=== PATIENT | female | born 1970 | race Caucasian/White ===

== ENCOUNTER 2020-09-22 14:58 | Outpatient (REF) | payer OTHER, SELFPAY | END 2020-09-22 14:59 | disposition home or self-care (01) | LOC: HO.LAB 14:58 | PROVIDERS: Visit Provider Internal Medicine | DX: Z20.822 Contact with and (suspected) exposure to COVID-19 (principal) | CPT/HCPCS: 36415; C9803; U0003; U0005 ==

== ENCOUNTER 2021-03-19 10:37 | Outpatient (REF) | payer OTHER, SELFPAY ==
[2021-03-19 11:24] LABS: COVID-19 Test Negative (Negative)
== END 2021-03-19 10:38 | disposition home or self-care (01) ==
LOC: HO.LAB 10:37
PROVIDERS: PCP Internal Medicine; Visit Provider Internal Medicine
DX: Z20.822 Contact with and (suspected) exposure to COVID-19 (principal)
CPT/HCPCS: 36415; 87635; C9803

== ENCOUNTER 2021-07-08 08:18 | Outpatient (REF) | payer OTHER, SELFPAY ==
[2021-07-08 09:28] LABS: COVID-19 Test Negative (Negative)
== END 2021-07-08 08:19 | disposition home or self-care (01) ==
LOC: HO.LAB 08:18
PROVIDERS: Visit Provider Internal Medicine
DX: Z20.822 Contact with and (suspected) exposure to COVID-19 (principal)
CPT/HCPCS: 87635; C9803

== ENCOUNTER 2021-08-31 08:36 | Day surgery (SDC) | payer OTHER, SELFPAY ==
[2021-08-21 18:07] VITALS: BMI 34.5
--- NOTE | 2021-08-28 10:32 | HO.ANESPROP2 ---
Documented by User: Susan Armenta NP 08/28/21 10:32 HPI - Anesthesia Eval Consult details Narrative: 51yo F for Colonoscopy [facility] Past Medical History Medical History Anxiety Depression Surgical History Surgical History History of wisdom tooth extraction Social History Social History Patient Tobacco Use Status: Never used Tobacco Use of substances other than those prescribed or required for medical reasons: No Are you DNR?: No Advance Directives: No Advance Directives Information Provided: Yes Advance Directives on File: No Recently lost weight without trying: No Nutrition Risks: No Nutritional Risk Patient : No Meds Allergies Allergy/AdvReac Type Severity Reaction Status Date / Time No Known Allergies Allergy Verified 08/21/21 17:58 Home Medications Medication Instructions Recorded Confirmed Last Taken Type bupropion HCl 200 mg tablet,12 hr 1 tab PO QAM 08/21/21 08/21/21 Unknown History sustained-release duloxetine 20 mg capsule,delayed 2 cap PO QPM 08/21/21 08/21/21 Unknown History release trazodone 50 mg tablet 1 tab PO BEDTIME 08/21/21 08/21/21 Unknown History Exam Exam Date and Time: August 28, 2021 1032 Height,Weight and Vital Signs: Height 5 ft 3 in Weight 88.451 kg Assessment and Plan Assessment Anesthesia Assessment: Chart Reviewed Documented by User: Mahogany Nuñez MD 08/31/21 09:57 [facility] Past Medical History Medical History Anxiety Depression Functional capacity: independent ambulation Patient : No Family History Family history of problems with anesthesia: No Surgical History Surgical History History of wisdom tooth extraction History of Problems with Anesthesia: No Social History Social History Patient Tobacco Use Status: Never used Tobacco Use of substances other than those prescribed or required for medical reasons: No Are you DNR?: No Advance Directives: No Advance Directives Information Provided: Yes Advance Directives on File: No Recently lost weight without trying: No Nutrition Risks: No Nutritional Risk Patient : No Meds Allergies Allergy/AdvReac Type Severity Reaction Status Date / Time No Known Allergies Allergy Verified 08/21/21 17:58 Home Medications Medication Instructions Recorded Confirmed Last Taken Type bupropion HCl 200 mg tablet,12 hr 1 tab PO QAM 08/21/21 08/21/21 Unknown History sustained-release duloxetine 20 mg capsule,delayed 2 cap PO QPM 08/21/21 08/21/21 Unknown History release trazodone 50 mg tablet 1 tab PO BEDTIME 08/21/21 08/21/21 Unknown History Exam Airway Mallampati Class: III TM Dist: >3cm Neck ROM: Full Heart: RRR Lungs: CTA Assessment and Plan Final Anesthetic Review Family History of Problems with Anesthesia: No History of Problems with Anesthesia: No ASA Class: II Final Preanesthetic Review: No Changes in Pt Med Stat, Meds/Allgs Chart Reviewed, Consent Obtained/Reviewed and Anes Risks/Benef Reviewed Patient Risk: Low Procedure Risk: Low Anesthetic Plan Anesthetic Plan: MAC: Disposition: Standard PACU
[2021-08-31 08:56] VITALS: BMI 32.9
[2021-08-31 09:08] VITALS: BP 118/62; PULSE 64; RESP 16; TEMP 36.2; O2SAT 96
[2021-08-31] MEDS: Lactated Ringers 1,000 ML 100 ML IVCONT (09:09)
[2021-08-31 10:32] VITALS: BP 97/73; PULSE 68; RESP 16; TEMP 36.1; O2SAT 96
--- NOTE | 2021-08-31 10:34 | PM.OP ---
Brief Operative Note Date of Service: 08/31/21 Pre-op diagnosis: Screening Post-op diagnosis: other (Diverticulosis) Procedure: Colonoscopy to the cecum Surgeon: Angel Chandra Anesthesia: MAC Was an Supply Chain Design Manager used for this Procedure?: No Estimated blood loss (mL): 0 Pathology: none sent Condition: stable Disposition: PACU
[2021-08-31 10:45] VITALS: BP 113/72; PULSE 56; RESP 18; TEMP 36.1; O2SAT 98
--- NOTE | 2021-08-31 14:38 | HO.POSTANES ---
Post Anesthesia Evaluation Post Anesthesia Evaluation Vital Signs: Vital Signs Temp Pulse Resp BP Pulse Ox 08/31/21 10:45 97.0 F 56 18 113/72 98 08/31/21 10:32 96.9 F 68 16 97/73 96 08/31/21 09:08 97.2 F 64 16 118/62 96 Anesthesia: Monitored Mental Status: Awake Pain Control: Satisfactory Nausea/Vomiting: None Hydration: Adequate Anesthesia-Related Issues: No Anes. Related Issues
--- NOTE | 2021-08-31 21:19 | OP_ITS ---
SURGEON: Angel Chandra MD INDICATIONS: The patient presents for evaluation of colorectal cancer screening. Full consent has been obtained from her for this, including risks of bleeding and perforation. PREOPERATIVE DIAGNOSIS: Colorectal cancer screening. POSTOPERATIVE DIAGNOSIS: PROCEDURE PERFORMED: Colonoscopy to the cecum. ESTIMATED BLOOD LOSS: COMPLICATIONS: ANESTHESIA: Medication used, monitored anesthesia care. ASSISTANTS: SPECIMENS: POSTOPERATIVE DIAGNOSES: Colorectal cancer screening, diverticulosis, and internal hemorrhoids. DESCRIPTION OF PROCEDURE: The patient was placed in left lateral decubitus position. The digital rectal exam revealed no abnormalities. The Olympus video pediatric colonoscope was entered into the rectum advanced to the cecum with the assistance of abdominal wall pressure. Once in the cecum, I did identify normal-appearing cecal pouch with appendiceal orifice and a normal-appearing ileocecal valve. There was transillumination of light deep in the right lower quadrant, the entire cecum and ileocecal valve appeared normal. The scope was slowly withdrawn assessing all mucosal surfaces carefully. Preparation was excellent. I did not visualize any sign of polyps, colitis, nor angiodysplasia. There was a mild amount of sigmoid diverticulosis. In the rectum, the scope was retroflexed visualizing internal hemorrhoids, but no other pathology. The rectal mucosa appeared normal. Scope was straightened and withdrawn from the patient. She tolerated the procedure well and was returned to recovery area in stable condition. IMPRESSION: 1. Mild sigmoid diverticulosis. 2. Small internal hemorrhoids. PLAN: Given the negative exam and negative family history, I would recommend a followup colonoscopy in 10 years for screening. She will otherwise see me on a p.r.n. basis. MD DAVIS Gasca/SAUD / [phone]
== END 2021-08-31 11:33 | disposition home or self-care (01) ==
PROVIDERS: PCP Internal Medicine; Visit Provider Internal Medicine
PROC: 0DJD8ZZ Inspection of Lower Intestinal Tract, Via Natural or Artificial Opening Endoscopic (ICD-10-PCS; CPT 45378; principal; 2021-08-31 10:10)
DX: Z12.11 Encounter for screening for malignant neoplasm of colon (principal); K57.30 Diverticulosis of large intestine without perforation or abscess without bleeding; K64.8 Other hemorrhoids; F32.9 Major depressive disorder, single episode, unspecified; F41.1 Generalized anxiety disorder; Z79.899 Other long term (current) drug therapy
CPT/HCPCS: 45378

== ENCOUNTER 2022-06-05 03:12 | Emergency (ER) | payer OTHER, SELFPAY ==
--- NOTE | ~2022-06-05 | CT_ITS ---
EXAMINATION: CT ABDOMEN AND PELVIS WITH CONTRAST CLINICAL INFORMATION: Right abdominal and flank pain COMPARISON: None TECHNIQUE: Multidetector volumetric images were obtained from the superior aspect of the liver through the pubic symphysis following administration 85 mL of Omnipaque 350 intravenous contrast. Sagittal and coronal reformatted images were obtained on the technologist's workstation. Oral contrast: No This CT examination was performed using dose optimization techniques as appropriate, variously including the following: *Automated exposure control *Adjustment of mA and/or kV according to patient size (this includes techniques or standardized protocols for targeted exams where dose is matched to indication/reason for exam; i.e. extremities or head) *Use of iterative reconstruction technique DLP: 796 mGy-cm FINDINGS: LUNG BASES: The visualized lung bases are unremarkable. No pleural or pericardial effusion. LIVER, GALLBLADDER, AND BILIARY TREE: The liver is normal in size, shape, and attenuation. No focal hepatic lesion or biliary ductal dilatation is present. The gallbladder is unremarkable with no evidence of radiopaque gallstones, gallbladder wall thickening, or obvious pericholecystic inflammatory changes. PANCREAS: Unremarkable. SPLEEN: Unremarkable. ADRENAL GLANDS: Unremarkable. KIDNEYS AND URETERS: Right kidney: Within the interpolar region there is a 3 mm nonobstructing calculus lying approximately 8 cm from the posterior axillary line. There is also a 2 mm nonobstructing calculus in the interpolar region. There is mild fullness to the right upper collecting system with columnization of the right ureter down to the urinary bladder but without definite ureteral calculus appreciated. There is question of a 1 mm calculus within the posterior right urinary bladder which may represent a recently passed calculus. There is some mild right perinephric fat stranding. No renal mass appreciated. Left kidney: No hydronephrosis or renal mass. There is either a 4 mm nonobstructing calculus versus contrast within the anterior interpolar region. The left ureter appears unremarkable. No significant perinephric fat stranding. BLADDER: Distended with question 1 mm calculus adjacent to the right ureterovesical junction. GASTROINTESTINAL TRACT: No dilated loops of large or small bowel. No free air or free fluid is seen. There is mild sigmoid diverticulosis without evidence of acute diverticulitis. No pericolonic inflammatory change. Appendix appears unremarkable. ABDOMINAL WALL: No significant hernia is appreciated. LYMPH NODES: No lymphadenopathy identified. VASCULAR: Unremarkable. PELVIC VISCERA: No suspicious mass identified. 1.7 cm Low-density region within the vagina/cervix. This may represent a nabothian cyst. OSSEOUS STRUCTURES: No destructive bony lesion identified. CT/CT abdomen pelvis w IV con IMPRESSION: Mild right hydronephrosis with columnization of the right ureter to the ureterovesical junction with question 1 mm calcification dependent right urinary bladder which may represent a recently passed calculus. A nonradiopaque calculus at the ureterovesical junction cannot be excluded. Right nephrolithiasis. Fleischner guidelines were followed.
[2022-06-05 03:17] VITALS: BP 129/65; PULSE 62; RESP 18; TEMP 36.6; O2SAT 99; BMI 31.8
[2022-06-05 03:32] LABS: MANUAL DIFF FLAG NO
[2022-06-05 03:33] LABS: Basophils Absolute Auto 0.1 X10*3/uL (0.0-0.2); Basophils Percent Auto 0.4 % (0-2); Eosinophils Absolute Auto 0.2 X10*3/uL (0.0-0.4); Eosinophils Percent Auto 1.3 % (0-4); Hematocrit 36.7 % (37.0-47.0); Hemoglobin 12.9 g/dl (12.0-16.0); Imm Gran Abs Auto 0.07 X10*3/uL (0.00-0.03); Imm Gran Pct Auto 0.6 % (0.0-0.4); Lymphocytes Absolute Auto 2.1 X10*3/uL (1.2-4.9); Lymphocytes Percent Auto 18.6 % (20-40); Mean Corpuscular HGB Conc 35.1 g/dl (31.0-35.0); Mean Corpuscular Hemoglobin 31.3 pg (27.0-33.0); Mean Corpuscular Volume 89.1 fL (80.0-98.0); Mean Platelet Volume 8.8 fL (9.4-12.3); Monocytes Absolute Auto 0.8 X10*3/uL (0.1-1.2); Monocytes Percent Auto 6.8 % (2-11); Neutrophils Absolute Auto 8.1 x10*3/uL (2.0-8.3); Neutrophils Percent Auto 72.3 % (45-73); Platelet Count 228 X10*3/uL (160-400); Red Blood Count 4.12 X10*6/uL (4.20-5.50); White Blood Count 11.3 X10*3/uL (4.8-10.8)
[2022-06-05 04:03] LABS: Alanine Aminotransferase 25 U/L (0-31); Albumin Level 4.5 g/dL (3.5-5.0); Alkaline Phosphatase 88 U/L (39-117); Anion Gap 13 (12-20); Aspartate Amino Transferase 23 U/L (5-31); Bilirubin Total 0.2 mg/dL (0.0-1.0); Blood Urea Nitrogen 25 mg/dL (9-16); Calcium 9.6 mg/dL (8.4-10.2); Carbon Dioxide 26 mmol/L (22-29); Chloride 100 mmol/L (96-108); Creatinine Clr Calc Pharmacy 71.5; Estimated Glomerular Filt Rate > 60; Glucose Random 123 mg/dL (60-115); Lipase 19 U/L (8-78); Potassium 4.2 mmol/L (3.3-5.1); Sodium 135 mmol/L (135-145); Total Protein 7.1 g/dL (6.5-8.0)
[2022-06-05 04:35] LABS: Appearance Urine Clear; Color Urine Yellow; Glucose Urine UA Negative (Negative); Leukocyte Esterase Urine Small (1+) (Negative); Nitrite Urine Negative (Negative); PH 6.5 (5.0-9.0); Specific Gravity - Urine >= 1.030 (1.005-1.025); UMIC TRIGGER UACC YES; Urine Blood Small (1+) (Negative); Urine Ketones 40 mg/dL (Negative); Urine Protein 30 (1+) mg/dL (Neg-Trace)
[2022-06-05 04:37] LABS: Bacteria Urine 1+ (None Seen); Hyaline Casts Urine 0-2 /LPF (0-2); UACC Culture Trigger YES
--- OUTSIDE RECORDS SUMMARY | 2022-06-05 04:42 | XMS_ITS ---
:1970 Author Organization [facility] Address [address] [place] [id number] Care Team Providers Name Role Phone Angel Chandra Unavailable Unavailable PROBLEMS Type Condition ICD9-CM [id number] Onset Condition SNOMED Cod e Code Code Dates Status Problem Encounter for Z12.11 Active 145710 004 screening for malignant neoplasm of colon Problem Diverticulosis of K57.30 Active 73 9124904 colon Problem Preprocedural Z01.818 Active 947913 [id number] examination ALLERGIES No Known Allergies ENCOUNTERS Encounter [place] Date [place] [facility] [place] [facility] [place], Colon cancer [facility] [place] [id number] Z12.11 ; D iverticulosis of colon K57.30 and Internal hemorrhoids K64. [address] Jul, Encounte r for screening for [facility] [address] [place], [place] malignant neoplasm of colon [id number] Z12.11 and Prepr ocedural examination Z01. 818 IMMUNIZATIONS Vaccine Route Administration Date Status Influenza Unknown Mar 04, 2021 Administered SOCIAL HISTORY Qualifiers Date Never Smoker REASON FOR REFERRAL FUNCTIONAL STATUS PLAN OF CARE Activity Details Future/Pending Procedure COLONOSCOPY [id number] VITAL SIGNS Weight 194 lbs 2021-07-28 Height 63 in 2021-07-28 BMI 34.36 kg/m2 2021-07-28 Temperature 96.8 degrees Fahrenheit 2021-07-28 Blood pressure systolic 000 mm Hg 2021-07-28 Blood pressure diastolic 00 mm Hg 2021-07-28 MEDICATIONS Medication Instructions Dosage Frequency Start End Date Duration Stat us Date traZODone HCl 90 Active 50 MG DULoxetine HCl Oral 20 in am 40 1 capsule Active 20 MG in pm buPROPion HCl 90 Active ER (SR) 200 MG PROCEDURES Procedure Date Ordered Result Body Site BP SCR NOT PRFRM REC REASON NOS Jul 28, 2021 TOBACCO NON-USER Jul 28, 2021 DOC MEDS VERIFIED W/PT OR RE Jul 28, 2021 COLORECTAL CA SCREEN DOC REV Jul 28, 2021 DIAGNOSTIC COLONOSCOPY Aug 31, 2021 RESULTS No Results REASON FOR VISIT screening, Patient presents today for screening colonoscopy Insurance Providers [facility] Member Patient Patient Patient Patient Patient Subscriber Subscriber Subscriber Group Insurance Plan Plan Plan Plan ID Relationship Address Phone Name Date of ID Name Date of No Type Insurance Insurance Insurance Coverage to Subscriber Address Phone Name Dates [facility] [phone] [facility] [place]GEL[place] 1969 [address][birth year] [id number] [place] [address] [facility] [address] [place] [phone]
--- NOTE | 2022-06-05 06:14 | PC.NURSE ---
Pt stating pain has stopped completely all of a sudden
[2022-06-05 06:15] VITALS: BP 124/68; PULSE 65; RESP 18; O2SAT 98
--- NOTE | 2022-06-05 07:31 | ED.ABDPAIN ---
HPI - Abdominal Pain General Chief Complaint: Abdominal Pain Stated Complaint: Abd pain Time Seen by Provider: 06/05/22 06:56 Source: patient Mode of arrival: ambulatory Limitations: no limitations History of Present Illness HPI narrative: 52-year-old female with a past medical history of anxiety presents to the emergency room this morning with sudden onset of abdominal pain. Patient states pain started at 1:00 a.m., and was severe. Located on the right side of her abdomen, mostly lower quadrant, without radiation. Patient denies nausea, fevers or chills at that time. MD elicited complaint: abdominal pain Pertinent past history: none Onset (ago): hour(s) Pain Consistency: constant and now resolved Location: RLQ Severity: severe Quality: stabbing and sharp Migration to: no migration Exacerbating factors: nothing Relieving factors: nothing Related Data Home Medications Medication Instructions Recorded Confirmed bupropion HCl 200 mg tablet,12 hr 1 tab PO QAM 08/21/21 08/21/21 sustained-release duloxetine 20 mg capsule,delayed 2 cap PO QPM 08/21/21 08/21/21 release trazodone 50 mg tablet 1 tab PO BEDTIME 08/21/21 08/21/21 Allergies Allergy/AdvReac Type Severity Reaction Status Date / Time No Known Allergies Allergy Verified 06/05/22 03:22 Review of Systems Constitutional: Denies chills, Denies fever(s) and Denies weakness Eyes: Denies blurry vision and Denies diplopia Denies vertigo, Denies dizziness, Denies neck pain and Denies sore throat Cardiovascular: Denies chest pain, Denies irregular heart rhythm, Denies palpitations and Denies dyspnea Respiratory: Denies cough and Denies dyspnea Gastrointestinal: Denies hematochezia, Denies coffee ground emesis, Denies diarrhea, Denies nausea and Denies vomiting Genitourinary: Denies hematuria and Reports urinary urgency Musculoskeletal: Denies muscle weakness and Denies neck pain Skin/Breast: Reports system reviewed and no additional complaints, except as docu Reports system reviewed and no additional complaints, except as documented, Denies Abnormal speech present, Denies vertigo, Denies dizziness and Denies weakness Endocrine: Denies palpitations PMFSH Past Medical History Attestation statement: The following information was validated with the patient. Medical History Anxiety Depression Surgical History History of wisdom tooth extraction Social History Social History Patient Tobacco Use Status: Never used Tobacco Smoked in Last 30 Days: No Use of substances other than those prescribed or required for medical reasons: Unknown Advance Directives: No Advance Directives Information Provided: Yes Physical Exam ED Vital Signs: Vital Signs - 24 hr 06/05/22 03:17 06/05/22 06:15 06/05/22 09:35 Temperature 98 F 98.5 F Pulse Rate 62 65 61 Respiratory Rate 18 18 16 Blood Pressure 129/65 124/68 90/66 Pulse Oximetry 99 98 95 Oxygen Delivery Method Room Air Room Air Room Air BMI result Body Mass Index 31.8 Vital signs stable and normal Const General: cooperative, healthy appearing and comfortable Nutritional Appearance: average body habitus Orientation/consciousness: patient oriented x3 HENMT Head: Yes normal to inspection, Yes normocephalic and Yes atraumatic Ears: external ears normal General nose exam: Normal external nose present Face and sinus: Yes normal facial exam Mouth: Normal oral and palatal mucosa present Eyes Sclerae: sclerae normal Corneas: corneas normal Pupils: Equal, round and reactive pupils present EOM: EOMs intact bilaterally Neck Neck: Yes normal visual inspection and Yes full ROM Resp Effort & Inspection: normal respiratory effort and no cough Auscultation: clear to auscultation bilaterally Cardio Rate: regular rate Rhythm: regular rhythm Heart sounds: no murmurs GI Inspection: No distended Palpation (GI): Soft to palpation, nontender and no guarding Percussion: Yes normal to percussion Back/Spine/Pelvis Cervical Spine: normal cervical lordosis and cervical ROM normal Skin General skin exam: no rashes or lesions noted, no jaundice and no pallor Neuro General: patient oriented x3 Cranial nerves: Yes CN's II-XII intact bilaterally and Yes Equal, round and reactive pupils present Speech: No Abnormal speech present Gait exam (Neuro): Normal gait present Medications Administered Discontinued Medications Generic Name Dose Route Start Last Admin Trade Name Freq PRN Reason Stop Dose Admin Iohexol 100 ml 06/05/22 07:52 06/05/22 07:53 Iohexol 350 Mg/Ml 100 Ml Infus..Btl IV 06/05/22 07:53 85 ml ONCE ONE Administration MDM - Abdominal Pain MDM Narrative Medical decision making narrative: Laboratory studies were reviewed. CT scan of the abdomen also reviewed. The signs and symptoms are consistent with renal colic, which is supported by the CT scan. The patient will be given urine strainers and advised to strain her urine for the next 24-36 hours. Differential Diagnosis Differential diagnosis: Likely abdominal pain, acute appendicitis, calculus of kidney, ovarian cyst and renal colic Medical Records Attestation: I reviewed the patient's medical records. Lab Data Attestation: I reviewed the patient's lab results. Lab results narrative: the blood work appears normal , with the exception of mild anemia. Urinalysis more consistent with kidney stone, but UTI also considered Result diagrams: 06/05/22 03:28 06/05/22 03:28 Labs: Lab Results 06/05/22 06/05/22 06/05/22 Range/Units 03:28 03:28 04:26 WBC 11.3 H (4.8-10.8) X10*3/uL RBC 4.12 L (4.20-5.50) X10*6/uL Hgb 12.9 (12.0-16.0) g/dl Hct 36.7 L (37.0-47.0) % MCV 89.1 (80.0-98.0) fL MCH 31.3 (27.0-33.0) pg MCHC 35.1 H (31.0-35.0) g/dl RDW 12.0 (11.0-16.0) % Plt Count 228 (160-400) X10*3/uL MPV 8.8 L (9.4-12.3) fL Immature Gran % (Auto) 0.6 H (0.0-0.4) % Neut % (Auto) 72.3 (45-73) % Lymph % (Auto) 18.6 L (20-40) % [place] % (Auto) 6.8 (2-11) % Eos % (Auto) 1.3 (0-4) % Baso % (Auto) 0.4 (0-2) % Lymph # (Auto) 2.1 (1.2-4.9) X10*3/uL [place] # (Auto) 0.8 (0.1-1.2) X10*3/uL Eos # (Auto) 0.2 (0.0-0.4) X10*3/uL Baso # (Auto) 0.1 (0.0-0.2) X10*3/uL Abs Immat Gran (auto) 0.07 H (0.00-0.03) X10*3/uL Absolute Neuts (auto) 8.1 (2.0-8.3) x10*3/uL Absolute Nucleated RBC 0.000 (0.0-0.012) X10*3/uL Nucleated RBC % (auto) 0.0 (0.0-0.2) /100WBC Sodium 135 (135-145) mmol/L Potassium 4.2 (3.3-5.1) mmol/L Chloride 100 (96-108) mmol/L Carbon Dioxide 26 (22-29) mmol/L Anion Gap 13 (12-20) BUN 25 H (9-16) mg/dL Creatinine 0.92 (0.5-1.4) mg/dL Estim Creat Clear Calc 71.5 Estimated GFR > 60 Random Glucose 123 H (60-115) mg/dL Calcium 9.6 (8.4-10.2) mg/dL Total Bilirubin 0.2 (0.0-1.0) mg/dL AST 23 (5-31) U/L ALT 25 (0-31) U/L Alkaline Phosphatase 88 (39-117) U/L Total Protein 7.1 (6.5-8.0) g/dL Albumin 4.5 (3.5-5.0) g/dL Lipase 19 (8-78) U/L Urine Color Yellow Urine Appearance Clear Urine pH 6.5 (5.0-9.0) Ur Specific [place] >= 1.030 H (1.005-1.025) Urine Protein 30 (1+) H (Neg-Trace) mg/dL Urine Glucose (UA) Negative (Negative) mg/dL Urine Ketones 40 (Negative) mg/dL Urine Blood Small (1+) H (Negative) Urine Nitrite Negative (Negative) Ur Leukocyte Esterase Small (1+) H (Negative) Urine RBC 11-20 H (0-2) /HPF Urine WBC 6-10 H (0-5) /HPF Ur Squamous Epith Cells 6-10 (0-2) /HPF Urine Bacteria 1+ (None Seen) Hyaline Casts 0-2 (0-2) /LPF Imaging Data CT scan - abdomen: Radiologist's impression: IMPRESSION: Mild right hydronephrosis with columnization of the right ureter to the ureterovesical junction with question 1 mm calcification dependent right urinary bladder which may represent a recently passed calculus. A nonradiopaque calculus at the ureterovesical junction cannot be excluded. ? Right nephrolithiasis Discharge Plan Discharge Clinical Impression: Calculus of kidney, Abdominal pain Patient Disposition: Home, Self-Care Instructions: Kidney Stones (ED), How to Strain Your Urine (ED) Additional Instructions: You may take ibuprofen, 600 mg 3 times a day if needed for discomfort. Follow-up with your primary care doctor next week. Prescriptions: No Action bupropion HCl 200 mg tablet sustained-release 12 hr 1 tab PO QAM duloxetine 20 mg capsule,delayed release(DR/EC) 2 cap PO QPM Rx Instructions: 20 mg capsule in the morning, 40 mg capsule in evening trazodone 50 mg tablet 1 tab PO BEDTIME
--- NOTE | 2022-06-05 07:40 | PC.NURSE ---
r abd pain since 99 that improved at 500, nad, no n/v, skin wpd
[2022-06-05] MEDS: iohexoL 350 MG/ML 100 ML INFUS..BTL IV (07:53)
[2022-06-05 09:35] VITALS: BP 90/66; PULSE 61; RESP 16; TEMP 36.9; O2SAT 95
[2022-06-05 10:00] VITALS: BP 100/67; PULSE 59; RESP 18; O2SAT 98
== END 2022-06-05 10:11 | disposition home or self-care (01) ==
PROVIDERS: Emergency Provider Emergency Medicine
DX: N20.0 Calculus of kidney (principal); R10.9 Unspecified abdominal pain
CPT/HCPCS: 36415; 74177; 80053; 81001; 83690; 85025; 87086; 99284; Q9967

== ENCOUNTER 2023-10-06 12:41 | Emergency (ER) | payer OTHER, SELFPAY ==
--- NOTE | ~2023-10-06 | XR_ITS ---
EXAMINATION: RIGHT ANKLE AND RIGHT FOOT CLINICAL INFORMATION: Fall down icy stairs with ankle pain COMPARISON: Right ankle and foot 02/03/2009 TECHNIQUE: 2 views right ankle, 3 views right foot FINDINGS: There is soft tissue swelling bilaterally, right greater than left. There is a spiral fracture involving the lateral malleolus with small amount of lateral displacement of the distal fracture fragment. The medial malleolus is intact. The ankle mortise appears normal. No foot fracture is seen. XR/XR foot RT min 3V IMPRESSION: Spiral fracture lateral malleolus with mild displacement.
--- NOTE | ~2023-10-06 | XR_ITS ---
EXAMINATION: RIGHT ANKLE AND RIGHT FOOT CLINICAL INFORMATION: Fall down icy stairs with ankle pain COMPARISON: Right ankle and foot 02/03/2009 TECHNIQUE: 2 views right ankle, 3 views right foot FINDINGS: There is soft tissue swelling bilaterally, right greater than left. There is a spiral fracture involving the lateral malleolus with small amount of lateral displacement of the distal fracture fragment. The medial malleolus is intact. The ankle mortise appears normal. No foot fracture is seen. XR/XR ankle RT min 3V IMPRESSION: Spiral fracture lateral malleolus with mild displacement.
--- NOTE | 2023-10-06 12:55 | ED.LOWEXIN ---
HPI - Extremity Injury (Lower) General Chief Complaint: Extremity Injury, Lower Stated Complaint: r foot inj Time Seen by Provider: 10/06/23 14:32 Source: patient Mode of arrival: wheelchair Limitations: no limitations History of Present Illness HPI Narrative: Patient is a 53 year old assigned female at with no reported medical history presenting to the emergency department today with right ankle pain. Patient states that last night she slipped down 2 steps and injured her right ankle. Patient denies any head strike or loss of consciousness. Patient denies any dizziness, lightheadedness, abdominal pain, nausea, vomiting, fever, chills, blurry vision, double vision, loss of vision, chest pain, difficulty breathing, shortness of breath, back pain, night sweats, pain with urination, increased urinary frequency, increased urinary urgency, blood in her urine or stool, syncope or a near syncopal episode, bowel incontinence, bladder incontinence, bowel retention, bladder retention, or any other complaints at this time. MD complaint: ankle injury Onset (ago): day(s) (1) Severity: mild Exacerbating factors: nothing Context: fall Associated symptoms: swelling Related Data Home Medications ?Medication ?Instructions ?Recorded ?Confirmed bupropion HCl 200 mg tablet,12 hr 1 tab PO QAM 08/21/21 08/21/21 sustained-release duloxetine 20 mg capsule,delayed 2 cap PO QPM 08/21/21 08/21/21 release trazodone 50 mg tablet 1 tab PO BEDTIME 08/21/21 08/21/21 Allergies Allergy/AdvReac Type Severity Reaction Status Date / Time No Known Allergies Allergy Verified 10/06/23 12:57 Review of Systems Constitutional: Constitutional: Reports no additional constitutional complaints, Denies chills, Denies fever(s) and Denies night sweats Eyes: Eyes: Reports no additional eye complaints, Denies blurry vision, Denies change in vision, Denies diplopia, Denies eye discharge, Denies loss of vision and Denies eye pain ENT: Denies dizziness Cardiovascular: Cardiovascular: Reports no additional cardiovascular complaints, Denies chest pain, Denies lightheadedness, Denies Loss of Consciousness and Denies dyspnea Respiratory: Respiratory: Reports no additional respiratory complaints and Denies dyspnea Gastrointestinal: Gastrointestinal: Reports no additional gastrointestinal complaints, Denies abdominal pain, Denies melena, Denies hematochezia, Denies change in bowel habits and Denies change in stool character Genitourinary: Genitourinary: Denies hematuria, Denies urinary frequency, Denies dysuria, Denies urinary incontinence, Denies urinary hesitancy and Denies urinary urgency Musculoskeletal: Musculoskeletal: Reports no additional musculoskeletal complaints, Denies numbness and Denies tingling Comments: right ankle pain, right ankle swelling Neurologic: Denies dizziness, Denies loss of vision, Denies numbness and Denies tingling Psychiatric: Psychiatric: Reports no additional psychiatric complaints Endocrine: Endocrine: Reports no additional endocrine complaints Hematologic/Lymphatic: Hematologic/Lymphatic: Reports no additional hematologic/lymphatic complaints Allergic/Immunologic: Allergic/Immunologic: Reports no additional allergic/immunologic complaints [facility] Past Medical History Attestation statement: The following information was validated with the patient. Source: old records reviewed and nursing notes reviewed Medical History Depression Anxiety Surgical History History of wisdom tooth extraction Social History Social History Unable to assess alcohol history related to: Unknown Patient Tobacco Use Status: Never used Tobacco Smoked in Last 30 Days: No Use of substances other than those prescribed or required for medical reasons: Unknown Advance Directives: No Advance Directives Information Provided: No Patient : No Physical Exam Vital Signs: Vital Signs: Last Vital Signs Temp 98.7 F 10/06/23 15:21 Pulse 64 10/06/23 15:21 Resp 19 10/06/23 15:21 BP 111/58 L 10/06/23 15:21 Pulse Ox 99 10/06/23 15:21 O2 Del Method Room Air 10/06/23 15:21 BMI result Body Mass Index 30.6 Const: General: cooperative, no acute distress, alert and awake Nutritional Appearance: well nourished Orientation/consciousness: patient oriented x3 Limitations: no limitations HEENT: Head: Yes normal to inspection and Yes atraumatic Ears: hearing grossly normal bilaterally and external ears normal General nose exam: Normal external nose present, no nasal discharge noted and no epistaxis Face and sinus: Yes normal facial exam, No abrasion and No laceration Mouth: Normal oral and palatal mucosa present, no drooling and no muffled voice Eyes: General: appearance normal, both eyes and all related structures Periorbital: periorbital findings normal Eyelids: Yes eyelids normal Conjunctivae: conjunctivae normal Pupils: Equal, round and reactive pupils present EOM: EOMs intact bilaterally Neck: Neck: Yes normal visual inspection, Yes full ROM and Yes no lymphadenopathy Chest: Chest palpation & inspection: normal inspection of the chest Resp: Effort & Inspection: normal respiratory effort and able to speak in complete sentences GI: Inspection: Yes normal to inspection Neuro: General: patient oriented x3 and moves all extremities Cranial nerves: Yes Equal, round and reactive pupils present Cognition (Neuro): normal cognition Motor exam (neuro): 5/5 motor strength present throughout Sensory Exam: Normal double simultaneous stimulation for sensation Coordination: [id number] test normal Extrem: Other: minimal swelling present to the right ankle, pain with ROM of the right ankle General: Yes full ROM and Yes capillary refill normal Psych: Appearance: grossly normal Mental Status: mental status grossly normal Affect: normal affect Attitude: cooperative Thought process: Normal thought process present Thought content: Normal thought content present Insight: Good insight present (Psych) Course Course Course Narrative: RME:?53 yo female here w/ right ankle pain/ swelling s/p mechanical fall down icy stairs last night. denies head strike or LOC. unable to bear weight on right foot. states she iced the ankle last night and went to bed hoping that it would be better. woke up this morning with continued pain. here w/ kayla wrap to right ankle. took motrin last night. xrs ordered Full HPI, ROS and PE to be performed by the primary ED provider. Medical Decision Making Medical Decision Making MDM Narrative: Patient is a 53 year old assigned female at with no reported medical history presenting to the emergency department today with right ankle pain. Patient's physical exam was as noted in the physical exam portion of this note. Patient's right ankle x-ray showed an acute fracture. I explained my physical exam findings as well as all test results to the patient. I answered all questions asked by the patient. Patient's right ankle was placed in a posterior short leg splint with a stirrup, without incident. Patient's PMS was intact prior to and after splint placement. I stressed the importance of the patient taking her medication as prescribed. I stressed the importance of the patient following up with her primary care provider and an orthopedic provider. I stressed the importance of the patient returning to the emergency department immediately if her symptoms were to worsen or if she were to develop any dizziness, shortness of breath, difficulty breathing, chest pain, blurry vision, loss of vision, nausea, vomiting, abdominal pain, fever, chills, back pain, or any other complaints. Patient verbalized agreement and understanding with this treatment plan and discharge. Differential Diagnosis Differential Diagnoses: The differential diagnosis associated with the presentation includes ankle sprain ankle strain ankle fracture Admission/Observation Consideration of admission/observation: Escalation of care including admission/observation considered Patient would have been admitted to the hospital had her work up had any findings where hospital admission was appropriate and her clinical presentation warranted hospital admission. Independent Interpretation I performed an independent interpretation of an: Plain X-Ray Interpretation: My interpretation is in agreement with the radiologist's impression of these imaging studies. EXAMINATION: RIGHT ANKLE AND RIGHT FOOT CLINICAL INFORMATION: Fall down icy stairs with ankle pain COMPARISON: Right ankle and foot 02/03/2009 TECHNIQUE: 2 views right ankle, 3 views right foot FINDINGS: There is soft tissue swelling bilaterally, right greater than left. There is a spiral fracture involving the lateral malleolus with small amount of lateral displacement of the distal fracture fragment. The medial malleolus is intact. The ankle mortise appears normal. No foot fracture is seen. XR/XR foot RT min 3V IMPRESSION: Spiral fracture lateral malleolus with mild displacement. Dictated By: Adan Alejandra MD Signed By: Electronically signed by Adan Alejandra MD 10/06/23 1209 Radiology Impression Discussion of test interpretation with radiology: I have reviewed the radiologist's reading. Procedures Orthopedic Splinting/Casting Injury #1: Side: right Lower Extremity Injury Location: ankle Lower Extremity Immobilizer: posterior splint and stirrup splint Other Orthopedic Equipment: crutches Discharge Plan Discharge Clinical Impression: Ankle fracture Patient Disposition: Home, Self-Care Instructions: Ankle Fracture (DC) Additional Instructions: Do NOT bear any weight on your right lower extremity. When stationary, elevated your right lower extremity. Do NOT get the splint wet and do NOT remove the splint. If your toes begin to tingle or sensation in your toes were to change at all, you may loosen the KAYLA wraps. If you find yourself loosening the KAYLA wraps to the point where the splint material underneath is revealed, please return to the ER immediately for splint replacement. Follow up with your primary care provider and an orthopedic provider. Return to the emergency department immediately if your symptoms worsen or if you develop any dizziness, shortness of breath, difficulty breathing, chest pain, blurry vision, loss of vision, nausea, vomiting, abdominal pain, fever, chills, back pain, or any other complaints. Prescriptions: No Action bupropion HCl 200 mg tablet sustained-release 12 hr 1 tab PO QAM duloxetine 20 mg capsule,delayed release(DR/EC) 2 cap PO QPM Rx Instructions: 20 mg capsule in the morning, 40 mg capsule in evening trazodone 50 mg tablet 1 tab PO BEDTIME Referrals: [facility] [Provider Group] (Call to establish and follow up with an orthopedic provider.) Chad Can MD [Primary Care Provider] - Stand Alone Forms: Work/School Release Interventions: ED Discharge Assessment Last Done: 10/06/23 15:21 Discharge Date/Time: 10/06/23 15:22 Print Language: Syriac
[2023-10-06 12:56] VITALS: BP 114/86; PULSE 58; RESP 16; TEMP 35.8; O2SAT 96; BMI 30.6
[2023-10-06 14:52] VITALS: BP 111/58; PULSE 64; RESP 19; TEMP 37.1; O2SAT 99
[2023-10-06 15:21] VITALS: BP 111/58; PULSE 64; RESP 19; TEMP 37.1; O2SAT 99
== END 2023-10-06 15:22 | disposition home or self-care (01) ==
PROVIDERS: Emergency Provider Emergency Medicine; PCP Internal Medicine
DX: S82.891A Other fracture of right lower leg, initial encounter for closed fracture (principal); M25.571 Pain in right ankle and joints of right foot; W10.9XXA Fall (on) (from) unspecified stairs and steps, initial encounter; Y93.9 Activity, unspecified; Y92.9 Unspecified place or not applicable; Y99.8 Other external cause status; Z79.899 Other long term (current) drug therapy
CPT/HCPCS: 29515; 73610; 73630; 99284

== ENCOUNTER 2023-10-10 11:00 | Outpatient (AMB) | payer OTHER, SELFPAY ==
[2023-10-10 11:01] VITALS: BMI 30.6
--- NOTE | 2023-10-10 11:01 | MHC.OFFVIS ---
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 Patient reports that she had a mechanical fall down icy stairs, she presented to [facility] ED the following day due to continued pain and swelling. 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 She was seen at ED the next day for her continued pain and swelling where x-rays were performed and she was placed in a splint. She currently states she has pain and swelling in her ankle. [facility] Medical History Depression Anxiety Surgical History History of wisdom tooth extraction Social History Unable to assess alcohol history related to: Unknown Patient Tobacco Use Status: Never used Tobacco Review of Systems Const All systems reviewed & are unremarkable except as noted in HPI and below Physical Exam Vital Signs: BMI result Body Mass Index 30.6 Const General: cooperative, healthy appearing, comfortable, no acute distress, well developed and alert Orientation/consciousness: patient oriented x3 HEENT Head: Yes normal to inspection, Yes normocephalic and Yes atraumatic Eyes General: appearance normal, both eyes and all related structures Neck Neck: Yes normal visual inspection and Yes no lymphadenopathy Resp Effort & Inspection: normal respiratory effort and able to speak in complete sentences Cardio Rate: regular rate Peripheral pulses: Peripheral pulses 2+ throughout GI Inspection: Yes normal to inspection Palpation (GI): Soft to palpation Skin General skin exam: no rashes or lesions noted Lesions: no lesions Rashes: no rashes Neuro General: patient oriented x3 Extrem Other: Right ankle: Normal to inspection with diffuse swelling over the medial and lateral malleolus with bony tenderness along the lateral malleolus.. No discomfort along the posterior aspect of the ankle, no deformity along the Achilles tendon, negative Lee?s. No pain along the syndesmosis or anterior tibia. No laxity, NVI. Psych Appearance: grossly normal Mental Status: mental status grossly normal Office Procedures Casting/Splints [id number] Leg splint application Procedure code (CPT) selection complete Results Reviewed Results Reviewed: xrays of the right ankle obtained in the ED on 10/06/23 show lateral malleolus fracture with disruption of the mortise. Assessment & Plan Assessment & Plan (1) Ankle fracture: Code(s): S82.899A - Other fracture of unspecified lower leg, initial encounter for closed fracture Plan I discussed the case with Dr. Balderas. I discussed the extent of the injury to the patient and options available. Given the extent of the fracture pattern and high risk of further displacement, it is recommended that we surgically fix this to help with stability and restoring anatomy. I explained to the patient the procedure in detail along with the risks, benefits and alternatives. Risks including but not limited to infection, wound breakdown, stiffness, ongoing pain, nonunion or malunion, and possible complications with hardware. She does understand all this and would like to proceed with closed versus open reduction internal fixation of the right ankle with Dr. Balderas. She will be booked accordingly. Patient Instructions: Scribed for Norma Horvath PA-C, by Hema Rogers medical secretary teacher, on 10/10/2023 at 11:15 AM EST. Norma Kate PA-C, have personally reviewed and agree with the information entered by the scribe. Coding Level of Care Code New Pt Level 4 (54449) Diagnoses Ankle fracture S82.899A CPT Codes Splint - CPT: 16805-Xhses Leg splint application ([id number])
== END 2023-10-10 12:56 | disposition home or self-care (01) ==
PROVIDERS: PCP Internal Medicine; Visit Provider Physician Assistant
DX: S82.61XA Displaced fracture of lateral malleolus of right fibula, initial encounter for closed fracture (principal)
CPT/HCPCS: 27786; 99204

== ENCOUNTER → 2023-10-10 11:00 | Outpatient (BNVA) | payer OTHER, SELFPAY | PROVIDERS: PCP Internal Medicine; Visit Provider Physician Assistant | DX: S82.61XA Displaced fracture of lateral malleolus of right fibula, initial encounter for closed fracture (principal) | CPT/HCPCS: 27786 ==

== ENCOUNTER 2024-03-06 08:00 | Outpatient (RCR) | payer OTHER, SELFPAY | END 2024-03-06 08:44 | disposition home or self-care (01) | LOC: HO.PT 08:00 | PROVIDERS: PCP Internal Medicine; Visit Provider Orthopaedic Surgery Foot and Ankle Surgery | DX: Z48.89 Encounter for other specified surgical aftercare (principal); Z98.890 Other specified postprocedural states | CPT/HCPCS: 97110; 97112; 97162; 97164; 97530 ==